=== PATIENT | male | born 2000 | race Hispanic/Latino ===

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

== ENCOUNTER 2023-11-18 14:19 | Emergency (ER) | payer SELFPAY ==
[2023-11-18] MEDS ORDERED: predniSONE 20 MG TAB ONE (14:34)
[2023-11-18] MEDS ORDERED: FAMOTIDINE 20 MG TAB ONE (14:34)
[2023-11-18] MEDS ORDERED: DIPHENHYDRAMINE 25 MG TAB/CAP ONE (14:34)
--- NOTE | 2023-11-18 16:06 | ER ---
Nurse's Notes [facility] Name: Daniel Caceres Age: 23 yrs Sex: Male : 2000 Arrival Date: 11/18/2023 Time: 14:19 Bed IW4 Private MD: Diagnosis: Allergic urticaria Presentation: 11/17 14:26 Chief complaint: Patient states: Eating chicken 40 min [employer]. Ear got hot, red, itchy. ll1 Face and neck itchy now. Coronavirus screen: Client denies travel out of the [place] in the last 14 days. At this time, the client does not indicate any symptoms associated with coronavirus-19. Ebola Screen: Patient denies travel to an Ebola-affected area in the 21 days before illness onset. Onset: The symptoms/episode began/occurred suddenly. Anaphylaxis evaluation, no signs or symptoms of anaphylaxis were noted. Initial Sepsis Screen: Does the patient meet any 2 criteria? No. Patient's initial sepsis screen is negative. Does the patient have a suspected source of infection? No. Patient's initial sepsis screen is negative. Risk Assessment: Do you want to hurt yourself or someone else? Patient reports no desire to harm self or others. Onset of symptoms was November 18, 2023. 14:26 Method Of Arrival: Ambulatory ll1 14:26 Acuity: MAY 3 ll1 Triage Assessment: 14:27 General: Appears uncomfortable, Behavior is calm, cooperative, appropriate for age. ll1 Pain: Complains of pain in right ear and left ear Pain currently is 7 out of 10 on a pain scale. Quality of pain is described as burning, aching. EENT: ears red. Reports pain in left ear and right ear. Derm: Reports itching. Historical: - Allergies: 14:26 No Known Allergies; ll1 - Home Meds: 14:26 None [Active]; ll1 - PMHx: 14:26 None; ll1 - PSHx: 14:26 None; ll1 - Immunization history:: Adult Immunizations up to date. - Infectious Disease History:: Denies. - Social history:: Smoking status: Patient denies any tobacco usage or history of. Screenin:05 [facility] ED Fall Risk Assessment (Adult) History of falling in the last 3 months, ll1 including since admission No falls in past 3 months (0 pts) Confusion or Disorientation No (0 pts) Intoxicated or Sedated No (0 pts) Impaired Gait No (0 pts) Mobility Assist Device Used No (0 pt) Altered Elimination No (0 pt) Score/Fall Risk Level 0 - 2 = Low Risk Maintained a safe environment, Hourly rounding (assess needs \T\ fall precautionary measures) done. Abuse screen: Denies threats or abuse. Nutritional screening: No deficits noted. Tuberculosis screening: No symptoms or risk factors identified. Assessment: 16:06 Respiratory: Airway is patent Respiratory effort is even, unlabored, Breath sounds are ll1 clear bilaterally. Vital Signs: 14:26 BP 156 / 103; Pulse 86; Resp 16; Temp 97.3; Pulse Ox 100% ; Weight 113.4 kg; Height 5 ll1 ft. 6 in. ; Pain 7/10; 14:26 Body Mass Index 40.35 (113.40 kg, 167.64 cm) ll1 14:26 Pain Scale: Adult ll1 ED Course: 14:21 Patient arrived in ED. mr 14:25 Arm band placed on. ll1 14:26 Shauna Finley PA-C is PHCP. sb4 14:26 Tobi Concepcion MD is Attending Physician. sb4 14:27 Triage completed. ll1 16:06 Patient has correct armband on for positive identification. Provided Education on: n/a. ll1 16:06 No provider procedures requiring assistance completed. Patient did not have IV access ll1 during this emergency room visit. Administered Medications: 14:37 Drug: predniSONE PO 40 mg PO once Route: PO; ll1 16:07 Follow up: Response: No adverse reaction ll1 14:37 Drug: diphenhydrAMINE PO 50 mg PO once Route: PO; ll1 16:07 Follow up: Response: No adverse reaction ll1 14:37 Drug: Famotidine PO 20 mg PO once Route: PO; ll1 16:07 Follow up: Response: No adverse reaction ll1 Medication: 16:07 VIS not applicable for this client. ll1 Outcome: 16:05 Condition: not in lobby when checked on. ll1 16:05 Discharge ordered by . sb4 16:06 Discharged to home ambulatory, ll1 16:06 Discharge instructions given to left without discharge instructions. Instructed on left without discharge instructions 16:10 Patient left the ED. ll1 Signatures: Joleen Carter Reg Reg mr Rakesh Yamil, RN RN ll1 Shauna Finley, RUBÉN [place] sb4
--- NOTE | 2023-11-18 16:06 | EDPHYS ---
Physician Documentation [facility] Name: Daniel Caceres Age: 23 yrs Sex: Male : 2000 Arrival Date: 11/18/2023 Time: :19 Bed IW4 Private MD: ED Physician Tobi Concepcion HPI: 11/17 14:32 This 23 yrs old Male presents to ER via Ambulatory with complaints of Allergic sb4 Reaction. 14:32 The patient presents with itching, rash, of the face. Onset: The symptoms/episode sb4 began/occurred just prior to arrival. Associated signs and symptoms: The patient has no apparent associated signs or symptoms. Possible causes: seasoning?. At home the patient or guardian has treated the symptoms with nothing. Severity of symptoms: At their worst the symptoms were mild. The patient has experienced similar episodes in the past, a few times. The patient has not recently seen a physician. . Historical: - Allergies: 14:26 No Known Allergies; ll1 - Home Meds: 14:26 None [Active]; ll1 - PMHx: 14:26 None; ll1 - PSHx: 14:26 None; ll1 - Immunization history:: Adult Immunizations up to date. - Infectious Disease History:: Denies. - Social history:: Smoking status: Patient denies any tobacco usage or history of. ROS: 14:32 Constitutional: Negative for fever, chills, and weight loss, sb4 14:32 Allergy/Immunology: Positive for pruritus, rash, face, 14:32 All other systems are negative, Exam: 14:32 Constitutional: This is a well developed, well nourished patient who is awake, alert, sb4 and in no acute distress. Head/Face: Normocephalic, atraumatic. Eyes: Extra-ocular motions intact. Periorbital areas with no swelling, redness, or edema. ENT: Mucous membranes moist. Cardiovascular: Regular rate and rhythm with a normal S1 and S2. Respiratory: Lungs have equal breath sounds bilaterally, clear to auscultation and percussion. No rales, rhonchi or wheezes noted. No increased work of breathing, no retractions or nasal flaring. Abdomen/GI: Soft, non-tender, no distension. MS/ Extremity: Pulses equal, no cyanosis. Neurovascular intact. Full, normal range of motion. Neuro: Awake and alert, GCS 15, oriented to person, place, time, and situation. Motor strength 5/5 in all extremities. Sensory grossly intact. 14:32 Skin: rash a mild rash is noted, rash can be described as macular, papular, on the face, Vital Signs: 14:26 BP 156 / 103; Pulse 86; Resp 16; Temp 97.3; Pulse Ox 100% ; Weight 113.4 kg; Height 5 ll1 ft. 6 in. ; Pain 7/10; 14:26 Body Mass Index 40.35 (113.40 kg, 167.64 cm) ll1 14:26 Pain Scale: Adult ll1 MDM: 14:26 Patient medically screened. sb4 14:32 Differential diagnosis: anaphylaxis, angioedema, Mastocystosis Status Asthmaticus sb4 urticaria. 16:05 Data reviewed: vital signs, nurses notes, and as a result, I will discharge patient. sb4 Counseling: I had a detailed discussion with the patient and/or guardian regarding the historical points, exam findings, and any diagnostic results supporting the discharge/admit diagnosis, to return to the emergency department if symptoms worsen or persist or if there are any questions or concerns that arise at home. Administered Medications: 14:37 Drug: predniSONE PO 40 mg PO once Route: PO; ll1 16:07 Follow up: Response: No adverse reaction ll1 14:37 Drug: diphenhydrAMINE PO 50 mg PO once Route: PO; ll1 16:07 Follow up: Response: No adverse reaction ll1 14:37 Drug: Famotidine PO 20 mg PO once Route: PO; ll1 16:07 Follow up: Response: No adverse reaction ll1 Disposition Summary: 11/18/23 16:05 Discharge Ordered Notes: Location: Home sb4 Problem: new sb4 Symptoms: have improved sb4 Condition: Stable sb4 Diagnosis - Allergic urticaria sb4 Followup: sb4 - With: Emergency Department - When: As needed - Reason: Trouble breathing, Worsening of condition Discharge Instructions: - Discharge Summary Sheet sb4 - Food Allergy, [id number] sb4 Forms: - Medication Reconciliation Form sb4 - Thank You Letter sb4 - Prescription Opioid Use sb4 - Patient Portal Instructions sb4 - Leadership Thank You Letter sb4 Prescriptions: - epinephrine 0.15 mg/0.3 mL Injection Auto-Injector - administer 0.3 milliliter INTRAMUSCULAR route every 4 hours as needed for sb4 anaphylaxis; 5 Applicator; Refills: 0, Product Selection Permitted Signatures: Yamil Cameron RN RN ll1 Shauna Finley PA-C PA-C sb4
[2023-11-18 18:07] VITALS: BP 156/103; TEMP 97.3; O2SAT 100
== END 2023-11-18 16:10 | disposition home or self-care (01) ==
LOC: ER 14:19
DX: L50.0 Allergic urticaria (principal)
CPT/HCPCS: 99283; J7512

== ENCOUNTER 2024-12-06 23:45 | Emergency (ER) | payer SELFPAY ==
[2024-12-07] MEDS ORDERED: ALBUTEROL 2.5 MG/3 ML NEB SOL ONE (00:12)
[2024-12-07] MEDS ORDERED: METHYLPREDNISOLONE 125 MG INJ ONE (00:12)
[2024-12-07] MEDS ORDERED: IPRATROPIUM BROM 0.5MG/2.5ML ONE (00:12)
[2024-12-07] MEDS ORDERED: FAMOTIDINE 20 MG/2 ML VIAL IV ONE (00:12)
[2024-12-07] MEDS ORDERED: DIPHENHYDRAMINE 50 MG/ML VIAL ONE (00:12)
[2024-12-07] MEDS ORDERED: NA CHLORIDE 0.9% 1,000 ML ONE (00:13)
[2024-12-07 00:56] LABS: Absolute Eosinophils 0.1 K/uL (0-0.5); Absolute Lymphocytes (CBC) 1.8 K/uL (0.7-4.9); Absolute Monocytes 0.4 K/uL (0.1-1.3); Absolute Neutrophil 5.9 K/uL (1.8-8.0); Basophils % 0.4 % (0-1.3); Eosinophils % 0.9 % (0-4.4); Hematocrit 42.8 % (39.6-49.0); Hemoglobin 14.9 g/dL (13.6-17.9); Lymphocytes % 22.3 % (15.3-44.8); MCH 27.3 pg (27.0-35.0); MCHC 34.9 g/dL (32.0-36.0); MCV 78.1 fL (80-100); MPV 8.4 fL (7.6-11.3); Monocytes % 5.2 % (3.3-12.3); Neutrophils % 71.2 % (41.7-73.7); Nucleated Red Blood Cells % 0.1 % (0-0); Platelets 269 thou/uL (152-406); RBC Red Blood Cell Count 5.48 M/uL (4.33-5.43); Red Cell Distribution Width 14.4 % (12.1-15.2)
[2024-12-07 00:59] LABS: Albumin 3.9 g/dL (3.4-5.0); Albumin/Globulin Ratio 1.1 (1.1-1.8); Anion Gap 9.4 mEq/L (5.0-15.0); Bilirubin Total 1.2 mg/dL (0.2-1.0); Globulin 3.4 g/dL (2.3-3.5); Potassium 3.4 mEq/L (3.5-5.1); Protein, Total 7.3 g/dL (6.4-8.2)
--- NOTE | 2024-12-07 02:28 | EDPHYS ---
Physician Documentation [facility] Name: Daniel Caceres Age: 24 yrs Sex: Male : 2000 Arrival Date: 12/06/2024 Time: 23:45 Bed 13 Private MD: ED Physician Sea Albert HPI: 12/07 02:26 This 24 yrs old Male presents to ER via Ambulatory with complaints of Allergic sp4 Reaction - ant bite, Breathing Difficulty. 20:55 24-year-old male presents with diffuse hives and difficulty breathing after being sp4 bitten by ants. Patient states that this is most commonly happens to him when he gets bitten by fire ants.. Historical: - Allergies: 00:10 ANTS; dd2 - PMHx: 00:10 None; dd2 - PSHx: 00:10 None; dd2 - Immunization history:: Adult Immunizations unknown. - Infectious Disease History:: Denies. - Social history:: Smoking status: Patient denies any tobacco usage or history of. - Family history:: not pertinent. ROS: 20:55 Constitutional: Negative for fever, chills, and weight loss, positive diffuse hives, sp4 positive diffuse redness, positive difficulty breathing, positive wheezing 20:55 All other systems are negative, Exam: 20:55 Constitutional: This is a well developed, well nourished patient who is awake, alert, sp4 patient is in moderate distress, with facial redness, several areas of hives diffusely mostly neck and upper extremities. Some mild bilateral wheezing auscultated. No airway compromise. Head/Face: Normocephalic, atraumatic. Eyes: Pupils equal round and reactive to light, extra-ocular motions intact. Lids and lashes normal. Conjunctiva and sclera are not injected. Cornea within normal limits. Periorbital areas with no swelling, redness, or edema. ENT: Nares patent. No nasal discharge, no septal abnormalities noted. Tympanic membranes are normal and external auditory canals are clear. Oropharynx with no redness, swelling, or masses, exudates, or evidence of obstruction, uvula midline. Mucous membranes moist. Neck: Trachea midline, no thyromegaly or masses palpated, and no cervical lymphadenopathy. Supple, full range of motion without nuchal rigidity, or vertebral point tenderness. Chest/axilla: Normal chest wall appearance and motion. Nontender with no deformity. No lesions are appreciated. Cardiovascular: Regular rate and rhythm with a normal S1 and S2. No gallops, murmurs, or rubs. Normal PMI, no JVD. No pulse deficits. Respiratory: Lungs have equal breath sounds bilaterally, mild bilateral wheezing diffusely, no sign of airway compromise, tachypnea on arrival. Abdomen/GI: Soft, with normal bowel sounds. No distension or tympany. No guarding or rebound. No evidence of tenderness throughout. Back: No spinal tenderness. No costovertebral tenderness. Skin: Warm, dry with normal turgor. Normal color with several areas of allergic hives mostly neck upper chest and upper extremities. MS/ Extremity: Pulses equal, no cyanosis. Neurovascular intact. Full, normal range of motion. Neuro: Awake and alert, GCS 15, oriented to person, place, time, and situation. Cranial nerves II-XII grossly intact. Motor strength 5/5 in all extremities. Sensory grossly intact. Psych: Awake, alert, with orientation to person, place and time. Behavior, mood, and affect are within normal limits Vital Signs: 00:04 BP 147 / 87; Pulse 124; Resp 23; Temp 98.9; Pulse Ox 96% on R/A; Weight 116.57 kg; dd2 Height 5 ft. 6 in. ; 01:40 BP 123 / 51; Pulse 110; Resp 19; Pulse Ox 99% on R/A; Pain 0/10; rg5 02:29 BP 106 / 59; Pulse 93; Resp 17; Pulse Ox 99% on R/A; Pain 0/10; rg5 00:04 Body Mass Index 41.48 (116.57 kg, 167.64 cm) dd2 01:40 Pain Scale: Adult rg5 02:29 Pain Scale: Adult rg5 Charles Coma Score: 20:55 Eye Response: spontaneous(4). Motor Response: obeys commands(6). Verbal Response: sp4 oriented(5). Total: 15. MDM: 02:15 Medical Screening Exam initiated sp4 20:57 Differential diagnosis: anaphylaxis, angioedema, Arrhythmias bronchospasm, Epiglottis sp4 Hereditary Angioedema Status Asthmaticus urticaria. Data reviewed: vital signs, nurses notes, old medical records, lab test result(s). Consideration of Admission/Observation Escalation of care including admission/observation considered. ED course: Patient has improved markedly after management in the ER. He feels drowsy from Benadryl but stable for discharge home.. 12/06 23:55 Order name: CBC with Diff; Complete Time: 02:20 sp4 12/06 23:55 Order name: CMP; Complete Time: 02:20 sp4 12/06 23:55 Order name: IV Saline Lock; Complete Time: 00:20 sp4 12/06 23:55 Order name: Labs collected and sent; Complete Time: 00:20 sp4 Administered Medications: 00:18 Drug: Famotidine IVP 20 mg IVP once; dilute with 10 mL 0.9% NaCl; give over 2 minutes vc1 Route: IVP; Site: left antecubital; 01:14 Follow up: Response: No adverse reaction rg5 00:18 Drug: diphenhydrAMINE IVP 50 mg IVP once Route: IVP; Site: left antecubital; vc1 01:15 Follow up: Response: No adverse reaction rg5 00:19 Drug: MethylPrednisoLONE IVP 125 mg IVP once Route: IVP; Site: left antecubital; vc1 01:14 Follow up: Response: No adverse reaction; Pain is decreased rg5 00:19 Drug: Albuterol Inhalation 2.5 mg Inhalation every 20 minutes x3 Route: Inhalation; vc1 00:19 Drug: Ipratropium Inhalation Aerosol 0.5 mg Inhalation once; Every 20 min for a total vc1 of 3 treatments x3 Route: Inhalation; 00:19 Drug: NS 0.9% IV 1000 ml IV at 1000 ml once; to be given as a bolus over 60 minutes vc1 Route: IV; Rate: 1000 ml; Site: left antecubital; 01:00 Drug: Albuterol Inhalation 2.5 mg Inhalation every 20 minutes x3 Route: Inhalation; rg5 01:00 Drug: Ipratropium Inhalation Aerosol 0.5 mg Inhalation once; Every 20 min for a total rg5 of 3 treatments x3 Route: Inhalation; 01:14 Drug: Albuterol Inhalation 2.5 mg Inhalation every 20 minutes x3 Route: Inhalation; rg5 01:14 Drug: Ipratropium Inhalation Aerosol 0.5 mg Inhalation once; Every 20 min for a total rg5 of 3 treatments x3 Route: Inhalation; Disposition: 20:58 Chart complete. sp4 Disposition Summary: 12/07/24 02:27 Discharge Ordered Notes: Location: Home sp4 Problem: new sp4 Symptoms: have improved sp4 Condition: Stable sp4 Diagnosis - Acute allergic reaction secondary to ant bites,, acute allergic hives, acute sp4 wheezing Followup: sp4 - With: Private Physician - When: 7 - 10 days - Reason: Recheck today's complaints Discharge Instructions: - Discharge Summary Sheet sp4 - Hives, [id number] sp4 - Form - Return To Work vk Forms: - Patient Portal Instructions sp4 - Work release form vk Prescriptions: - Benadryl 25 mg Oral Capsule - take 1 capsule ORAL route every 6 hours As needed; 30 tablet; Refills: 0, sp4 Product Selection Permitted - Prednisone 20 mg Oral Tablet - take 2 tablets ORAL route once daily for 5 days; 10 tablet; Refills: 0, Product sp4 Selection Permitted Signatures: Dispatcher [employer] EDGeorgette Coombs RN RN vc1 Sea Albert MD MD sp4 Jossue Chang RN RN rg5 FAUSTO FLORES RN RN dd2 Corrections: (The following items were deleted from the chart) 12/06 23:56 23:56 CBC+H.LAB.BRZ ordered. EDMS EDMS 23:56 23:56 COMPREHENSIVE METABOLIC PANEL+C.LAB.BRZ ordered. EDMS EDMS
--- NOTE | 2024-12-07 02:28 | ER ---
Nurse's Notes [facility] Name: Daniel Caceres Age: 24 yrs Sex: Male : 2000 Arrival Date: 12/06/2024 Time: 23:45 Bed 13 Private MD: Diagnosis: Acute allergic reaction secondary to ant bites,, acute allergic hives, acute wheezing Presentation: 12/07 00:04 Chief complaint: Patient states: WAS BITE BY ANTS IN HIS SLEEP, WOKE WITH COUGHING, dd2 EARS FEELING SWOLLEN AND DIFFICULTY BREATHING. PT REPORTS ALLERGY TO ANTS. Coronavirus screen: At this time, the client does not indicate any symptoms associated with coronavirus-19. Ebola Screen: No symptoms or risks identified at this time. Onset: The symptoms/episode began/occurred suddenly. Anaphylaxis evaluation, the patient reports or I have noted the following symptoms which indicate a significant risk of anaphylaxis: shortness of breath urticaria . The patient has been moved to a treatment room and the charge nurse or attending physician has been notified. Initial Sepsis Screen: Does the patient meet any 2 criteria? No. Patient's initial sepsis screen is negative. Does the patient have a suspected source of infection? No. Patient's initial sepsis screen is negative. Risk Assessment: Do you want to hurt yourself or someone else? Patient reports no desire to harm self or others. Onset of symptoms was December 07, 2024. 00:04 Method Of Arrival: Ambulatory dd2 00:04 Acuity: MAY 2 dd2 Triage Assessment: 00:10 General: Appears distressed, Behavior is cooperative, appropriate for age, anxious. dd2 Pain: Denies pain. Respiratory: Reports labored breathing Airway is patent Respiratory effort is even, labored, Respiratory pattern is regular, symmetrical, tachypnea the patient has moderate shortness of breath. Derm: REDNESS NOTED TO JOSEPHINE LOWER LEGS, RT UPPER LEG, FACE AND JOSEPHINE EARS Reports itching, tingling. Historical: - Allergies: 00:10 ANTS; dd2 - PMHx: 00:10 None; dd2 - PSHx: 00:10 None; dd2 - Immunization history:: Adult Immunizations unknown. - Infectious Disease History:: Denies. - Social history:: Smoking status: Patient denies any tobacco usage or history of. - Family history:: not pertinent. Screenin:23 [facility] ED Fall Risk Assessment (Adult) History of falling in the last 3 months, kj2 including since admission No falls in past 3 months (0 pts) Confusion or Disorientation No (0 pts) Intoxicated or Sedated No (0 pts) Impaired Gait No (0 pts) Mobility Assist Device Used No (0 pt) Altered Elimination No (0 pt) Score/Fall Risk Level 0 - 2 = Low Risk Maintained a safe environment, Hourly rounding (assess needs \T\ fall precautionary measures) done. Abuse screen: Denies threats or abuse. Denies injuries from another. Nutritional screening: No deficits noted. Tuberculosis screening: No symptoms or risk factors identified. Assessment: 00:21 General: Appears uncomfortable, Behavior is cooperative. Neuro: Level of Consciousness kj2 is awake, alert, obeys commands, Oriented to person, place, time, situation. Cardiovascular: Patient's skin is warm and dry. Respiratory: Airway patient able to swallow, patient continues to clear his throat. GI: No signs and/or symptoms were reported involving the gastrointestinal system. : No signs and/or symptoms were reported regarding the genitourinary system. Derm: Rash noted that is red, to face and general body. 02:29 Reassessment: Patient and/or family updated on plan of care and expected duration. Pain rg5 level reassessed. Patient is alert, oriented x 3, equal unlabored respirations, skin warm/dry/pink. Patient states feeling better. Patient states symptoms have improved. Respiratory: Airway is patent Trachea midline Respiratory effort is even, unlabored, Respiratory pattern is regular, symmetrical, Breath sounds are clear bilaterally. Vital Signs: 00:04 BP 147 / 87; Pulse 124; Resp 23; Temp 98.9; Pulse Ox 96% on R/A; Weight 116.57 kg; dd2 Height 5 ft. 6 in. ; 01:40 BP 123 / 51; Pulse 110; Resp 19; Pulse Ox 99% on R/A; Pain 0/10; rg5 02:29 BP 106 / 59; Pulse 93; Resp 17; Pulse Ox 99% on R/A; Pain 0/10; rg5 00:04 Body Mass Index 41.48 (116.57 kg, 167.64 cm) dd2 01:40 Pain Scale: Adult rg5 02:29 Pain Scale: Adult rg5 [place] Coma Score: 20:55 Eye Response: spontaneous(4). Motor Response: obeys commands(6). Verbal Response: sp4 oriented(5). Total: 15. ED Course: 12/06 23:47 Patient arrived in ED. al6 23:54 Sea Albert MD is Attending Physician. sp4 12/07 00:07 Triage completed. dd2 00:10 Arm band placed on right wrist. Patient placed in an exam room, on a stretcher, on dd2 pulse oximetry. 00:12 Rosmery Reece, DIXIE is Primary Nurse. kj2 00:21 Initial lab(s) drawn, by me, sent to lab. Inserted saline lock: 20 gauge in left rk3 antecubital area, using aseptic technique. Blood collected. Flushed with 10 mL NS. 00:24 Patient has correct armband on for positive identification. Provided Education on: call kj2 light. 02:30 No provider procedures requiring assistance completed. IV discontinued, bleeding rg5 controlled, No redness/swelling at site. Pressure dressing applied. Administered Medications: 00:18 Drug: Famotidine IVP 20 mg IVP once; dilute with 10 mL 0.9% NaCl; give over 2 minutes vc1 Route: IVP; Site: left antecubital; 01:14 Follow up: Response: No adverse reaction rg5 00:18 Drug: diphenhydrAMINE IVP 50 mg IVP once Route: IVP; Site: left antecubital; vc1 01:15 Follow up: Response: No adverse reaction rg5 00:19 Drug: MethylPrednisoLONE IVP 125 mg IVP once Route: IVP; Site: left antecubital; vc1 01:14 Follow up: Response: No adverse reaction; Pain is decreased rg5 00:19 Drug: Albuterol Inhalation 2.5 mg Inhalation every 20 minutes x3 Route: Inhalation; vc1 00:19 Drug: Ipratropium Inhalation Aerosol 0.5 mg Inhalation once; Every 20 min for a total vc1 of 3 treatments x3 Route: Inhalation; 00:19 Drug: NS 0.9% IV 1000 ml IV at 1000 ml once; to be given as a bolus over 60 minutes vc1 Route: IV; Rate: 1000 ml; Site: left antecubital; 01:00 Drug: Albuterol Inhalation 2.5 mg Inhalation every 20 minutes x3 Route: Inhalation; rg5 01:00 Drug: Ipratropium Inhalation Aerosol 0.5 mg Inhalation once; Every 20 min for a total rg5 of 3 treatments x3 Route: Inhalation; 01:14 Drug: Albuterol Inhalation 2.5 mg Inhalation every 20 minutes x3 Route: Inhalation; rg5 01:14 Drug: Ipratropium Inhalation Aerosol 0.5 mg Inhalation once; Every 20 min for a total rg5 of 3 treatments x3 Route: Inhalation; Medication: 02:30 VIS not applicable for this client. rg5 Outcome: 02:27 Discharge ordered by . farideh 02:42 Patient left the ED. rg5 Signatures: Georgette Altamirano RN RN vc1 Sea Albert MD MD sp4 Jossue Chang, RN RN rg5 Rosmery Reece RN RN kj2 FAUSTO FLORES RN RN dd2 Sanna Flores Rozana 3
[2024-12-07 03:07] VITALS: TEMP 98.9
[2024-12-07 03:13] VITALS: O2SAT 99
[2024-12-07 03:14] VITALS: BP 106/59
== END 2024-12-07 02:42 | disposition home or self-care (01) ==
LOC: ER 23:45
DX: L50.0 Allergic urticaria (principal); R06.2 Wheezing; Z91.038 Other insect allergy status
CPT/HCPCS: 36415; 80053; 85025; 96374; 96375; 99285; J1200; J2919; J7030; J7613; J7644